=== PATIENT | female | born 1985 | race African-American/Black ===

== ENCOUNTER 2018-02-16 16:12 | Emergency (ER) | payer SELFPAY ==
[2018-02-16] MEDS ORDERED: HYDROcodone/Acetaminophen 10/325 mg Tablet ONE (16:56)
[2018-02-16] MEDS ORDERED: Ketorolac Tromethamine 30 MG/ML VIAL ONE (16:57)
--- NOTE | 2018-02-16 17:40 | RAD ---
LEFT FEMUR TWO VIEWS: HISTORY: Fall. Left leg injury. FINDINGS: The femur is intact. No acute fracture or dislocation. IMPRESSION: No acute osseous abnormalities are demonstrated. POS: [facility]
== END 2018-02-16 17:24 | disposition home or self-care (01) ==
LOC: ERS 16:12
DX: S79.822A Other specified injuries of left thigh, initial encounter; Y93.54 Activity, bowling; I10 Essential (primary) hypertension; Y92.39 Other specified sports and athletic area as the place of occurrence of the external cause; W19.XXXA Unspecified fall, initial encounter
CPT/HCPCS: 96372; J1885

== ENCOUNTER 2018-03-16 09:45 | Emergency (ER) | payer OTHER, SELFPAY | END 2018-03-16 11:28 | disposition home or self-care (01) | LOC: ERS 09:45 | DX: K04.7 Periapical abscess without sinus (principal); K02.9 Dental caries, unspecified; I10 Essential (primary) hypertension | CPT/HCPCS: 99283 ==

== ENCOUNTER 2018-07-04 09:28 | Emergency (ER) | payer OTHER, SELFPAY ==
--- NOTE | 2018-07-04 10:10 | RAD ---
LEFT HAND 3 VIEWS: Date: 07/04/18 HISTORY: 32-year-old female with history of left thumb pain. FINDINGS/IMPRESSION: No fracture, dislocation, or other significant acute osseous abnormality. POS: [facility]
== END 2018-07-04 10:35 | disposition home or self-care (01) ==
LOC: ERS 09:28
DX: M77.9 Enthesopathy, unspecified (principal); I10 Essential (primary) hypertension

== ENCOUNTER 2018-07-13 14:46 | Emergency (ER) | payer SELFPAY ==
[2018-07-13] MEDS ORDERED: Dexamethasone 4 mg/ml Vial ONE (16:28)
== END 2018-07-13 16:55 | disposition home or self-care (01) ==
LOC: ERS 14:46
DX: J03.90 Acute tonsillitis, unspecified (principal); I10 Essential (primary) hypertension
CPT/HCPCS: 87081; 87430; 99283; J1100

== ENCOUNTER 2018-11-19 11:53 | Emergency (ER) | payer SELFPAY ==
--- NOTE | 2018-11-19 14:32 | RAD ---
PORTABLE CHEST: Indications: Cough. FINDINGS: Lungs appear clear. Heart and mediastinum unremarkable. IMPRESSION: Unremarkable chest. POS: [facility]
== END 2018-11-19 13:56 | disposition home or self-care (01) ==
LOC: ERS 11:53
DX: R05 Cough (principal); I10 Essential (primary) hypertension
CPT/HCPCS: 71045

== ENCOUNTER 2024-05-25 13:36 | Emergency (ER) | payer SELFPAY ==
[~2024-05-25 13:36] MED LIST: Iopamidol-370 76% 500 ML MDV (1 ML CHARGE) ONE
[2024-05-25] MEDS ORDERED: Sucralfate 1 GM/10 ML UDCUP ONE (14:07)
[2024-05-25] MEDS ORDERED: Pantoprazole DR 40 MG TAB ONE (14:07)
[2024-05-25] MEDS ORDERED: Milk Of Magnesia 30 ML UDCUP ONE (14:08)
[2024-05-25 14:20] LABS: BHCG - Serum Negative (NEGATIVE); Pregs Control Background? CLEAR/WHITE (CLR/WHITE); Pregs Control Bar Appear? YES (CONTROL BAR)
[2024-05-25 14:28] LABS: #Basophils 0.06 10x3/uL (0.0-0.2); %Basophils 1.1 % (0.0-1.0); %Eosinophils 3.2 % (0.0-10.0); %Lymphocytes 45.9 % (21.0-51.0); %Neutrophils 38.6 % (42.0-75.0); Hematocrit 31.3 % (36.0-47.0); Hemoglobin 9.6 g/dL (12.0-16.0); Mean Corpuscular HGB CONC 30.7 g/dL (32.0-36.0); Mean Corpuscular Hemoglobin 19.6 pg (27.0-31.0); Mean Corpuscular Volume 63.7 fL (78.0-98.0); Mean Platelet Volume 11.1 fL (7.4-10.4); Platelet Count 331 10x3/uL (130-400); RBC Distribution Width 16.2 % (11.5-14.5); Red Blood Cell (RBC) Count 4.91 mill/uL (4.20-5.40); Reflex for Review?? YES
[2024-05-25 14:29] LABS: ALT (SGPT) 17 U/L (8-55); AST (SGOT) 29 U/L (5-34); Albumin 3.7 g/dL (3.5-5.0); Alkaline Phosphatase 45 U/L (40-110); Anion Gap 12 mmol/L (10-20); BUN (Urea Nitrogen) 9 mg/dL (7.0-18.7); Bilirubin, Total 0.8 mg/dL (0.2-1.2); Calc. Creatinine Clearance 0 mL/min (70-130); Calcium 8.9 mg/dL (7.8-10.44); Carbon Dioxide 23 mmol/L (22-29); Chloride 106 mmol/L (98-107); Estimated GFR 116; Globulin 4.1 g/dL (2.4-3.5); Glucose 66 mg/dL (70-105); Lipase 17 U/L (8-78); Magnesium 1.9 mg/dL (1.6-2.6); Potassium 4.3 mmol/L (3.5-5.1); Protein, Total 7.8 g/dL (6.0-8.3); Sodium 137 mmol/L (136-145)
[2024-05-25] MEDS ORDERED: Lidocaine 2% Viscous 10 mL, Alum & Magn 30 mL SSW SCH (14:30)
[2024-05-25 14:33] LABS: Troponin I Less than 0.010 ng/mL (< 0.028)
[2024-05-25 14:55] LABS: Anisocytosis SLIGHT = 6-15 cells HPF (0-5); Elliptocytes SLIGHT = 2-5 cells HPF (0-1); Eosinophils 3 % (0-10); Hypochromia SLIGHT = 6-15 cells HPF (0-5); Lymphocytes 53 % (21-51); Microcytosis MODERATE=15-30 cells HPF (0-5); Monocytes 8 % (0-10); Neutrophil 33 % (42-75); Platelet Adequacy Comment Platelets Normal; Polychromasia SLIGHT = 2-3 cells HPF (0-2); Schistocytes SLIGHT = 2-5 cells HPF (0-1); Target Cells SLIGHT = 2-5 cells HPF (0-1)
[2024-05-25 17:14] LABS: Bacteria/HPF None Seen HPF (None Seen); Bilirubin Negative (Negative); Blood, Urine Negative (Negative); CAUTI Indications for Culture Fever or rigors; Clarity Clear (Clear); Glucose, Urine (Dipstick) Normal (Negative); Ketone, Urine Negative (Negative); Leukocyte Negative Leu/uL (Negative); Nitrite Negative (Negative); Protein, Urine (Dipstick) Negative (Neg-Trace); RBC/HPF 0-3 HPF (0-3); Squamous Epithelial 0-3 HPF (0-3); Urobilinogen Normal mg/dL (Less than 2); WBC/HPF 0-3 HPF (0-3)
[2024-05-25 17:15] LABS: Specific Gravity, Urine 1.058 (1.002-1.036)
[2024-05-25 17:16] LABS: Urine Culture Reflex No No
[2024-05-25] MEDS ORDERED: Dicyclomine 20 MG/2 ML VIAL ONE (17:36)
[2024-05-25] MEDS ORDERED: Ketorolac Tromethamine 30 MG (1 mL) VIAL ONE (17:36)
== END 2024-05-25 17:53 | disposition home or self-care (01) ==
LOC: ERS 13:36
DX: R10.13 Epigastric pain (principal); I10 Essential (primary) hypertension
CPT/HCPCS: 71045; 71275; 74174; 80053; 81001; 83690; 83735; 84484; 84703; 85025; 85060; 93005; 96372; 96374; J1885; Q9967

== ENCOUNTER 2025-08-10 07:43 | Emergency (ER) | payer BC, OTHER ==
[2025-08-10] MEDS ORDERED: cloNIDine 0.1 MG TAB ONE (09:05)
[2025-08-10] MEDS ORDERED: Acetaminophen 500 MG TAB ONE (09:05)
== END 2025-08-10 14:27 | disposition home or self-care (01) ==
LOC: ERS 07:43
DX: M79.644 Pain in right finger(s) (principal); I10 Essential (primary) hypertension; Z79.899 Other long term (current) drug therapy
CPT/HCPCS: 99283